=== PATIENT | female | born 1980 | race African-American/Black ===

== ENCOUNTER 2020-02-12 16:45 | Emergency (ER) | payer OTHER, SELFPAY ==
[~2020-02-12 16:45] MED LIST: Iopamidol-370 76% 500 ML 1 ML ONE
[2020-02-12 17:19] LABS: #Basophils 0.1 thou/uL (0.0-0.2); #Eosinphils 0.1 thou/uL (0.0-0.7); #Lymphocytes 2.5 thou/uL (1.20-3.40); #Monocytes 0.7 thou/uL (0.11-0.59); #Neutrophils 12.6 thou/uL (1.40-6.50); %Basophils 0.6 % (0.0-1.0); %Eosinophils 0.6 % (0.0-10.0); %Lymphocytes 15.5 % (21.0-51.0); %Monocytes 4.6 % (0.0-10.0); %Neutrophils 78.6 % (42.0-75.0); Hemoglobin 10.3 g/dL (12.0-16.0); Mean Corpuscular HGB CONC 33.3 g/dL (32.0-36.0); Mean Corpuscular Hemoglobin 26.2 pg (27.0-31.0); Mean Corpuscular Volume 78.5 fL (78.0-98.0); Mean Platelet Volume 5.9 fL (7.4-10.4); Platelet Count 868 thou/uL (130-400); RBC Distribution Width 16.6 % (11.5-14.5); Red Blood Cell (RBC) Count 3.93 mill/uL (4.20-5.40)
[2020-02-12 17:26] LABS: BHCG - Serum Negative (NEGATIVE); Pregs Control Background? CLEAR/WHITE (CLR/WHITE); Pregs Control Bar Appear? YES (CONTROL BAR)
[2020-02-12 17:32] LABS: Bilirubin Moderate (Negative); Blood, Urine Large (Negative); Glucose, Urine (Dipstick) Negative (Negative); Ketone, Urine Trace mg/dL (Negative); Leukocyte Moderate (Negative); Nitrite Positive (Negative); Protein, Urine (Dipstick) > or equal to 300 mg/dL (Neg-Trace); Specific Gravity, Urine 1.025 (1.005-1.030); pH, Urine 7.5 (5.0-9.0)
[2020-02-12 17:33] LABS: Clarity Turbid (Clear); Other Microscopic Description Less than 2 mL rec'd
[2020-02-12 17:39] LABS: ALT (SGPT) 23 U/L (8-55); AST (SGOT) 24 U/L (5-34); Albumin 3.5 g/dL (3.5-5.0); Alkaline Phosphatase 40 U/L (40-110); Anion Gap 17 mmol/L (10-20); BUN (Urea Nitrogen) 5 mg/dL (7.0-18.7); Bilirubin, Total 0.4 mg/dL (0.2-1.2); Calc. Creatinine Clearance 0 mL/min (70-130); Calcium 9.7 mg/dL (7.8-10.44); Carbon Dioxide 20 mmol/L (22-29); Chloride 95 mmol/L (98-107); Estimated GFR-MDRD 60; Globulin 5.1 g/dL (2.4-3.5); Glucose 112 mg/dL (70-105); Potassium 3.8 mmol/L (3.5-5.1); Protein, Total 8.6 g/dL (6.0-8.3); Sodium 128 mmol/L (136-145)
[2020-02-12] MEDS ORDERED: Morphine 4 MG/ML VIAL ONE (17:55)
[2020-02-12] MEDS ORDERED: Ondansetron PF 4 MG/2 ML Vial ONE (17:56)
[2020-02-12 20:24] LABS: Lactic Acid 1.7 mmol/L (0.5-2.2)
[2020-02-12] MEDS ORDERED: Ketorolac Tromethamine 30 MG/ML VIAL ONE (20:47)
--- NOTE | 2020-02-12 21:13 | CT ---
CT ABDOMEN AND PELVIS PERFORMED WITH CONTRAST ENHANCEMENT: 02/12/20 HISTORY: Abdominal pain. Vaginal bleeding. Recent diagnosis of cervical cancer. The lung bases are clear of any infiltrative process. The liver and spleen show no focal abnormalities. There is an area of focal fatty sparing adjacent to the falciform ligament. The pancreas and gallblad jorge regions are normal. Right and left adrenal gland are normal. There is mild dilatation of the right collecting system and right ureter. There is no obstructing calculus. The dilatation terminates at the level of the uterus. There is a large mass-like area in the lower uterine segment and cervical region measuring approxima tely 12 cm in diameter consistent with a history of cervical cancer. There is left periaortic adenopa thy. Low attenuation has a pathologic appearance. Some of these nodes measured from subcentimeter to 12 to as much as 20 cm in size. Also, slightly greater than centimeter lymph node in the left common iliac chain and some small subcentimeter right common iliac chain nodes. Also some enlarged nodes in the right internal iliac and left internal iliac region also external iliac chain lymphadenopathy bi laterally with the left external iliac chain node measuring approximately 2 cm in short axis dimensio n. Some smaller inguinal nodes are also present. the appendix is normal. IMPRESSION: 1. Large cervical mass. The mass obstructs the uterus with a dilated appearing endometrium. Ther e is also right sided hydronephrosis and hydroureter related to these changes. There is also evidence of pathologic lymphadenopathy involving the left periaortic nodes. Also some smaller aortocaval node s also suspicious as well as bilateral pelvic lymphadenopathy. 2. No concerning lytic or blastic bony changes. POS: OFF
[2020-02-13 00:01] LABS: SARS-CoV-2 NAA Rapid Test Not Detected (NotDetected)
[2020-02-13] MEDS ORDERED: cefTRIAXone\\ROCEPHIN 1 GM VIAL ONE (04:08)
[2020-02-13] MEDS ORDERED: Cefepime 2 GM VIAL ONE (04:09)
[2020-02-13] MEDS ORDERED: Ketorolac Tromethamine 30 MG/ML VIAL ONE (07:15)
[2020-02-13] MEDS ORDERED: Ondansetron PF 4 MG/2 ML Vial ONE (07:51)
[2020-02-15 21:54] LABS: Chlamydia by PCR Not Detected (NotDetected); GC by PCR Not Detected (NotDetected)
== END 2020-02-13 08:30 | disposition short-term general hospital (02) ==
LOC: ERS 16:45
DX: C53.9 Malignant neoplasm of cervix uteri, unspecified (principal); N13.2 Hydronephrosis with renal and ureteral calculous obstruction; N39.0 Urinary tract infection, site not specified; J45.909 Unspecified asthma, uncomplicated
CPT/HCPCS: 36415; 74177; 80053; 81003; 81015; 83605; 84703; 85025; 87480; 87491; 87510; 87591; 87660; 96365; 96367; 96375; 96376; J0690; J0692; J0696; J1885; J2270; J2405; Q9967; U0002